=== PATIENT | male | born 1985 | race Two or more races ===

== ENCOUNTER 2020-04-21 11:23 | Emergency (ER) | payer OTHER ==
[~2020-04-21] VITALS: Ht 167.6 cm; Wt 63.5 kg
[2020-04-21] MEDS ORDERED: IV NORMAL SALINE 1,000ML 1,000 ML IV ONE (11:45)
[2020-04-21] MEDS ORDERED: CLINDAMYCIN 600MG PREMIX 50 ML IV ONE (11:45)
--- NOTE | 2020-04-21 12:45 | RAD ---
EXAMINATION: EXT NON VASC LEFT 04/21/2020 11:41 AM INDICATION: Painful red area left groin TECHNIQUE: Cooper scale and color Doppler ultrasound images of the left groin were obtained. COMPARISON: None. FINDINGS: There is diffuse subcutaneous edema in the left groin. No discrete mass or fluid collection. No inguinal hernia or lymphadenopathy identified. IMPRESSION: Subcutaneous edema in the left groin. No discrete mass, fluid collection, hernia, or lymphadenopathy visualized. Electronically signed by: Breanna De Oliveira MD (04/21/2020 12:42 PM) [id number]
[2020-04-21 12:49] LABS: BASO % 0 % (0-3); EOS % 0 % (0-3); HEMATOCRIT 42.4 % (39.0-53.0); HEMOGLOBIN 13.8 g/dL (13.0-17.5); LYMPH # 0.6 x10^3/uL (1.0-4.8); LYMPH % 5 % (24-48); MEAN CORPUSCULAR HEMOGLOBIN 30 pg (25-35); MEAN CORPUSCULAR HGB CONC 32 g/dL (31-37); MEAN CORPUSCULAR VOLUME 92 fL (79-100); MONO # 0.7 x10^3/uL (0.0-1.1); MONO % 5 % (0-9); NEUT # 12.8 x10^3uL (1.8-7.7); NEUT % 90 % (31-73); PLATELET COUNT 187 x10^3/uL (140-400); RED BLOOD COUNT 4.59 x10^6/uL (4.30-5.70); RED CELL DISTRIBUTION WIDTH 14.4 % (11.5-14.5); WHITE BLOOD COUNT 14.2 x10^3/uL (4.0-11.0)
[2020-04-21 12:57] LABS: CALCIUM 8.6 mg/dL (8.5-10.1); CREATININE 1.2 mg/dL (0.7-1.3); GFR 69.3; POTASSIUM 3.4 mmol/L (3.5-5.1)
[2020-04-21 13:03] LABS: ALBUMIN 3.2 g/dL (3.4-5.0); ALBUMIN/GLOBULIN RATIO 0.8 (1.0-1.7); TOTAL BILIRUBIN 0.8 mg/dL (0.2-1.0); TOTAL PROTEIN 7.1 g/dL (6.4-8.2)
[2020-04-21 13:10] LABS: BACTERIA,URINE 0 /HPF (0-FEW); BILIRUBIN,URINE NEG (NEG); CLARITY,URINE CLEAR; COLOR,URINE YELLOW; GLUCOSE,URINE 100 mg/dL (NEG); NITRITE,URINE NEG (NEG); RBC,URINE OCC /HPF (0-2); SQUAMOUS EPITHELIAL CELL,UR FEW /LPF; UROBILINOGEN,URINE >=8.0 mg/dL (0.2 mg/dL); WBC,URINE OCC /HPF (0-4)
[2020-04-21 13:41] VITALS: BP 129/66
--- NOTE | 2020-04-21 13:47 | PHYS DOC ---
Past History Past Medical History: No Pertinent History Past Surgical History Vasectomy, ear surgery, dental surgery Smoking: Non-smoker Alcohol Use: Rarely General Adult EDM: Chief Complaint: GROIN PAIN HPI: HPI: Patient is a 34 year old male who presents for evaluation of left groin area pain and swelling. There is warmth and redness to the site. Symptoms have been progressing for about 2 days. Patient was seen earlier today at an urgent care clinic was sent to the hospital for evaluation. Patient states that the area feels "warm and hot". There is no reported urinary complaints. Patient has no fevers and chills. Patient had recently been shaving his groin area. There is no discernible abscess seen and there is no drainage. Patient has no testicular pain or swelling Review of Systems: Review of Systems: Constitutional: Denies fever or chills Eyes: Denies change in visual acuity HENT: Denies nasal congestion or sore throat Respiratory: Denies cough or shortness of breath Cardiovascular: Denies chest pain or edema GI: Denies abdominal pain, nausea, vomiting, bloody stools or diarrhea : Denies dysuria Musculoskeletal: Denies back pain or joint pain Integument: Denies rash, swollen red area left groin Neurologic: Denies headache, focal weakness or sensory changes Endocrine: Denies polyuria or polydipsia Lymphatic: Denies swollen glands Psychiatric: Denies depression or anxiety Current Medications: Current Meds: Current Medications Medications (Trade) Dose Ordered Sig/[facility] Start Time Stop Time Status Last Admin Dose Admin Clindamycin Phosphate 50 ml @ 100 mls/hr 1X ONCE 04/21/20 11:45 04/21/20 12:14 DC 04/21/20 11:45 100 MLS/HR Sodium Chloride 1,000 ml @ 1,000 mls/hr 1X ONCE 04/21/20 11:45 04/21/20 12:44 DC 04/21/20 12:09 1,000 MLS/HR Allergies: Allergies: Allergies Coded Allergies Type Severity Reaction Last Updated Verified No Known Drug Allergies 04/21/20 No Physical Exam: PE: Constitutional: Well developed, well nourished, mild acute distress, non-toxic appearance. [] HENT: Normocephalic, atraumatic, bilateral external ears normal, oropharynx moist, no oral exudates, nose normal. [] Eyes: PERRL, EOMI, conjunctiva normal, no discharge. [] Neck: Normal range of motion, no tenderness, supple. [] Cardiovascular:Heart rate regular rhythm, no murmur [] Lungs & Thorax: Bilateral breath sounds clear to auscultation [] Abdomen: Bowel sounds normal, soft, no tenderness, no masses, no pulsatile masses. [] Skin: Warm, dry, no erythema, no rash. [] Back: No tenderness. [] Extremities: No tenderness, no cyanosis, ROM intact, no edema. [] Neurologic: Alert and oriented X 3, normal motor function, normal sensory function, no focal deficits noted. [] Psychologic: Affect normal, judgement normal, mood normal. : Interior Design Assistant present, left groin area has a red and swollen area measure about 3 cm in diameter. There is surrounding warmth and redness that goes up the crease of the left groin area. No discernible abscess seen or palpated, there is no drainage. He has recently shaved his groin area, it has the appearance of localized cellulitis, site is not reducible [] Current Patient Data: Labs: Laboratory Tests Test 04/21/20 12:09 04/21/20 12:23 Urine Collection Type Unknown Urine Color Yellow Urine Clarity Clear Urine pH 8.0 Urine Specific [place] 1.020 Urine Protein 30 mg/dl (NEG-TRACE) Urine Glucose (UA) 100 mg/dL (NEG) Urine Ketones (Stick) 80 mg/dL (NEG) Urine Blood Neg (NEG) Urine Nitrite Neg (NEG) Urine Bilirubin Neg (NEG) Urine Urobilinogen Dipstick >=8.0 mg/dL (0.2 mg/dL) Urine Leukocyte Esterase Neg (NEG) Urine RBC Occ /HPF (0-2) Urine WBC Occ /HPF (0-4) Urine Squamous Epithelial Cells Few /LPF Urine Bacteria 0 /HPF (0-FEW) Urine Mucus Slight /LPF White Blood Count 14.2 x10^3/uL (4.0-11.0) H Red Blood Count 4.59 x10^6/uL (4.30-5.70) Hemoglobin 13.8 g/dL (13.0-17.5) Hematocrit 42.4 % (39.0-53.0) Mean Corpuscular Volume 92 fL (79-100) Mean Corpuscular Hemoglobin 30 pg (25-35) Mean Corpuscular Hemoglobin Concent 32 g/dL (31-37) Red Cell Distribution Width 14.4 % (11.5-14.5) Platelet Count 187 x10^3/uL (140-400) Neutrophils (%) (Auto) 90 % (31-73) H Lymphocytes (%) (Auto) 5 % (24-48) L Monocytes (%) (Auto) 5 % (0-9) Eosinophils (%) (Auto) 0 % (0-3) Basophils (%) (Auto) 0 % (0-3) Neutrophils # (Auto) 12.8 x10^3uL (1.8-7.7) H Lymphocytes # (Auto) 0.6 x10^3/uL (1.0-4.8) L Monocytes # (Auto) 0.7 x10^3/uL (0.0-1.1) Eosinophils # (Auto) 0.0 x10^3/uL (0.0-0.7) Basophils # (Auto) 0.0 x10^3/uL (0.0-0.2) Sodium Level 138 mmol/L (136-145) Potassium Level 3.4 mmol/L (3.5-5.1) L Chloride Level 100 mmol/L (98-107) Carbon Dioxide Level 27 mmol/L (21-32) Anion Gap 11 (6-14) Blood Urea Nitrogen 7 mg/dL (8-26) L Creatinine 1.2 mg/dL (0.7-1.3) Estimated GFR (Cockcroft-Gault) 69.3 BUN/Creatinine Ratio 6 (6-20) Glucose Level 96 mg/dL (70-99) Lactic Acid Level 1.8 mmol/L (0.4-2.0) Calcium Level 8.6 mg/dL (8.5-10.1) Total Bilirubin 0.8 mg/dL (0.2-1.0) Aspartate Amino Transferase (AST) 28 U/L (15-37) Alanine Aminotransferase (ALT) 59 U/L (16-63) Alkaline Phosphatase 77 U/L (46-116) Total Protein 7.1 g/dL (6.4-8.2) Albumin 3.2 g/dL (3.4-5.0) L Albumin/Globulin Ratio 0.8 (1.0-1.7) L Vital Signs: Vital Signs Date Time Temp Pulse Resp B/P (MAP) Pulse Ox O2 Delivery O2 Flow Rate FiO2 04/21/20 13:41 89 18 129/66 (87) 97 Room Air 04/21/20 11:32 99.3 EKG: EKG: [] Radiology/Procedures: Radiology/Procedures: [][address] [address] IMAGING REPORT Signed PATIENT: DAGO CAMACHO MACCOUNT: [id number] : 1985 LOCATION: ER AGE: 34 SEX: M EXAM STATUS: REG ER ORD. PHYSICIAN: ZAC DRUMMOND DO REASON: painful red area left groin area PROCEDURE: EXT NON VASC LEFT EXAMINATION: EXT NON VASC LEFT 04/21/2020 11:41 AM INDICATION: Painful red area left groin TECHNIQUE: Cooper scale and color Doppler ultrasound images of the left groin were obtained. COMPARISON: None. FINDINGS: There is diffuse subcutaneous edema in the left groin. No discrete mass or fluid collection. No inguinal hernia or lymphadenopathy identified. IMPRESSION: Subcutaneous edema in the left groin. No discrete mass, fluid collection, hernia, or lymphadenopathy visualized. Electronically signed by: Breanna De Oliveira MD (04/21/2020 12:42 PM) [id number] DICTATED AND SIGNED BY: BREANNA DE OLIVEIRA MD DATE: 04/21/20 1241 CC: CORTNEY HERNANDEZ; ZAC DRUMMOND DO ~ Heart Score: Risk Factors: Risk Factors: DM, Current or recent (<one month) smoker, HTN, HLP, family history of CAD, obesity. Risk Scores: Score 0 - 3: 2.5% MACE over next 6 weeks - Discharge Home Score 4 - 6: 20.3% MACE over next 6 weeks - Admit for Clinical Observation Score 7 - 10: 72.7% MACE over next 6 weeks - Early Invasive Strategies Course & Med Decision Making: Course & Med Decision Making Pertinent Labs and Imaging studies reviewed. (See chart for details) [] Dragon Disclaimer: Dragon Disclaimer: This electronic medical record was generated, in whole or in part, using a voice recognition dictation system. 1347 stable, patient reexamined at this time. Sonogram did not show evidence of a localized abscess there was no incision and drainage required. Patient has no involvement of his testicles and there is no evidence of testicular torsion. Furthermore there is no evidence of a hernia. This appears to be a localized cellulitis. Patient given dose of IV clindamycin. 14,000 white blood cell count noted but he is not currently running a fever. Prescription for clindamycin and doxycycline given. Close follow-up recommended Departure Departure: Impression: Primary Impression: Cellulitis of groin, left Disposition: DC HOME SELF CARE/HOMELESS Condition: STABLE Referrals: CORTNEY HERNANDEZ (PCP) Patient Instructions: Cellulitis, [id number] Additional Instructions: Use warm compresses to site, take medication as directed, take Tylenol or ibuprofen for pain or fever. Have your doctor recheck this in the next couple days, return if symptoms persist or worsen Scripts Doxycycline Hyclate (DOXYCYCLINE HYCLATE) 100 Mg Capsule 1 CAP PO BID for cellulitis, #14 CAP Prov: ZAC DRUMMOND DO 04/21/20 Clindamycin Hcl (CLINDAMYCIN HCL) 150 Mg Capsule 1 CAP PO QID for cellulitis, #28 CAP Prov: ZAC DRUMMOND DO 04/21/20 ZAC DRUMMOND DO Apr 21, 2020 13:47
[2020-04-21] MEDS ORDERED: DOXY100C2 PO (13:56)
[2020-04-21] MEDS ORDERED: CLIN150C14 PO (13:56)
== END 2020-04-21 14:22 | disposition home or self-care (01) ==
LOC: ER 11:23
DX: L03.314 Cellulitis of groin (principal); R10.32 Left lower quadrant pain; R60.0 Localized edema; Z90.89 Acquired absence of other organs; Z98.890 Other specified postprocedural states
CPT/HCPCS: 36415; 76881; 80053; 81001; 83605; 85025; 87040; 96365; 99284; J3490; J7030

== ENCOUNTER 2020-06-08 11:40 | Emergency (ER) | payer OTHER ==
[~2020-06-08] VITALS: Ht 167.6 cm; Wt 64.9 kg
[~2020-06-08 11:40] MED LIST: CLIN150C14 PO; DOXY100C2 PO
[2020-06-08 12:00] VITALS: BP 130/88
--- NOTE | 2020-06-08 12:32 | PHYS DOC ---
Past History Past Medical History: No Pertinent History Smoking: Non-smoker Alcohol Use: Rarely General Adult EDM: Chief Complaint: PENIS PROBLEM HPI: HPI: 34 yo M who denies any PMH presents to the ed with c/o painful lesion to his penis that started after using an "autoblow 2.0," 2 days ago, described as a sex toy that mimics mastubation, requires penis insertion. Pt reports it was painful to remove the autoblow 2 days ago and after he got if removed, saw a bump on the side of his penis shaft with some skin missing. Lesion did not bleed. Pt reports he was tested for STDs 3 months ago and was negative. Is but is in an open sexual relationship and states he uses condoms every time. Tetanus is up-to-date. Has been applying Neosporin and bandages to the wound. No associated urethral discharge, dysuria, hematuria, scrotal/penile shaft swelling, increased urinary frequency or urgency or spreading genital rash. No h/o mrsa. Review of Systems: Review of Systems: Constitutional: Denies fever or chills Eyes: Denies change in visual acuity HENT: Denies nasal congestion or sore throat Respiratory: Denies cough or shortness of breath Cardiovascular: Denies chest pain or edema GI: Denies abdominal pain, nausea, vomiting, bloody stools or diarrhea : Denies dysuria or hematuria Musculoskeletal: Denies back pain or joint pain Integument: Denies diaphoresis or scrotal edema Neurologic: Denies headache, focal weakness or sensory changes Endocrine: Denies polyuria or polydipsia Lymphatic: Denies swollen glands Psychiatric: Denies depression or anxiety Current Medications: Current Meds: Current Medications Medications (Trade) Dose Ordered Sig/[facility] Start Time Stop Time Status Last Admin Dose Admin Azithromycin (Zithromax) 1,000 mg 1X ONCE 06/08/20 12:15 06/08/20 12:21 DC Ceftriaxone Sodium (Rocephin Im) 250 mg 1X ONCE 06/08/20 12:15 06/08/20 12:21 DC Allergies: Allergies: Allergies Coded Allergies Type Severity Reaction Last Updated Verified No Known Drug Allergies 04/21/20 No Physical Exam: PE: Constitutional: Well developed, well nourished, no acute distress, non-toxic appearance. HENT: Normocephalic, atraumatic, Eyes: EOMI, conjunctiva normal, no discharge. Neck: Normal range of motion, supple, Cardiovascular: S1/2 present, regular rhythm Lungs & Thorax: Speaking in full sentences, bilateral equal chest rise, no tachypnea or increased work of breathing Abdomen: soft, no tenderness, Skin: Warm, dry, no erythema, no rash. [] : chaperoned by RN, uncircumcised (no paraphimosis/phimosis), 1.5x1.x5 raised borders/circular lesion with yellow overlying ttp granulation tissue (no epidermis or dermis), no drainage or bleeding, no penile swelling or rash, no scrotal pain/rash Extremities: No tenderness, no cyanosis, no edema Neurologic: Alert and oriented X 3, normal motor function, normal sensory function, no focal deficits noted. [] Psychologic: Affect normal, judgement normal, mood normal. [] EKG: EKG: [] Radiology/Procedures: Radiology/Procedures: [] Heart Score: Risk Factors: Risk Factors: DM, Current or recent (<one month) smoker, HTN, HLP, family history of CAD, obesity. Risk Scores: Score 0 - 3: 2.5% MACE over next 6 weeks - Discharge Home Score 4 - 6: 20.3% MACE over next 6 weeks - Admit for Clinical Observation Score 7 - 10: 72.7% MACE over next 6 weeks - Early Invasive Strategies Course & Med Decision Making: Course & Med Decision Making Pertinent Labs and Imaging studies reviewed. (See chart for details) I do suspect friction trauma to the penile shaft with early granulation tissue formation. But given patient's sex history and known history of herpes, patient was empirically treated for chlamydia and gonorrhea in the ED. Wet prep did not show any trichomonas. Will also be given doxycycline 100 mg twice daily for 14 days. This will cover patient for chlamydia/lymphogranuloma venereum, chancro id, granuloma inguinale, and primary syphilis. Strict ED return precautions were given for spreading rash, worsening swelling or pain. Encouraged urgent outpatient follow-up with PMD and urology for outpt followup. Life-threatening processes were considered but are low suspicion at this time, given history and physical exam. Pt was educated on all prescription medications and adverse effects. All patient's questions were answered and pt was stable at time of discharge. Life/limb-threatening differential includes but is not limited to, infection (sti/pid, cystitis, pyelonephritis, Agustina's gangrene or necrotizing fasciitis, abscess) ureterolithiasis, thrombophlebitis, organ prolapse, abdominal aortic aneurysm, mesenteric ischemia, neoplasm, bowel obstruction or surgical abdomen. I spoken with the patient and her caregivers. I explained the patient's condition, diagnoses and treatment plan based on the information available to me at this time. I have answered the patient and her caregiver's questions and addressed any concerns. The patient and her caregivers have a good understanding of patient's diagnosis, condition and treatment plan as can be expected at this point. Vital signs have been stable. Patient's condition is stable and appropriate for discharge from the emergency department. Patient will pursue further outpatient evaluation with primary care physician or other designated or consulting physician as outlined in the discharge instructions. The patient and/or caregivers are agreeable to this plan of care and follow-up instructions have been explained in detail. The patient and/or caregivers have received these instructions in written form and have expressed an understanding of the discharge instructions. The patient and/or caregivers are aware that any significant change of condition or worsening of symptoms should prompt immediate return to this or the closest emergency department or call to [facility] Disclaimer: Noman Disclaimer: This electronic medical record was generated, in whole or in part, using a voice recognition dictation system. Departure Departure: Impression: Primary Impression: Uncomplicated open wound of penis Disposition: 01 DC HOME SELF CARE/HOMELESS Condition: STABLE Referrals: CORTNEY HERNANDEZ (PCP) For blood-borne sexually-related illnesses (hepatitis, syphilis, HIV) Patient Instructions: Sexually Transmitted Disease, Wound Care, [id number] Additional Instructions: FOLLOW UP WITH UROLOGY: for wound re-evaluation in 1 week [facility] urologists Medical [place] [address] [place] [address] appointments: [phone] EMERGENCY DEPARTMENT GENERAL DISCHARGE INSTRUCTIONS Thank you for coming to [facility] (ED) today and trusting us with you care. We trust that you had a positivie experience in our Emergency Department. If you wish to speak to the department management, you may call the director at [phone]. YOUR FOLLOW UP INSTRUCTIONS ARE FOLLOWS: 1. Do you have a private Doctor? If you do not have a private doctor, please ask for a resource list of physicians or clinics that may be able to assist you with follow up care. 2. The Emergency Physician has interpreted your x-rays. The X-Ray specialist will also review them. If there is a change in the findings, you will be notified in 48 hours when at all possible. 3. A lab test or culture has been done, your results will be reviewed and you will be notified if you need a change in treatment. ADDITIONAL INSTRUCTIONS AND INFORMATION: 1. Your care today has been supervised by a physician who is specially trained in emergency care. Many problems require more than one evaluation for a complete diagnosis and treatment. We recommend that you schedule your follow up appointment as recommended to ensure complete treatment of you illness or injury. If you are unable to obtain follow up care and continue to have a problem, or if your condition worsens, we recommend that you return to the ED. 2. We are not able to safely determine your condition over the phone nor are we able to give sound medical advice over the phone. For these safety reasons, if you call for medical advice we will ask you to come to the ED for further evaluation. 3. If you have any questions regarding these discharge instructions please call the ED at [phone]. SAFETY INFORMATION: In the interest of safety, wellness, and injury prevention; we encourage you to wear your sealbelt, if you smoke; quite smoking, and we encourage family to use a protective helmet for bicycling and other sporting events that present an increased risk for head injury. IF YOUR SYMPTOMS WORSEN OR NEW SYMPTOMS DEVELOP, OR YOU HAVE CONCERNS ABOUT YOUR CONDITION; OR IF YOUR CONDITION WORSENS WHILE YOU ARE WAITING FOR YOUR FOLLOW UP APPOINTMENT; EITHER CONTACT YOUR PRIMARY CARE DOCTOR, THE PHYSICIAN WHOSE NAME AND NUMBER YOU WERE GIVEN, OR RETURN TO THE ED IMMEDIATELY. Scripts Doxycycline Hyclate (DOXYCYCLINE HYCLATE) 100 Mg Capsule 1 CAP PO BID for rash for 14 Days, #28 CAP Prov: CHINMAY CAM DO 06/08/20 CHINMAY CAM DO Jun 08, 2020 12:31
[2020-06-08] MEDS ORDERED: LIDOCAINE 1% Multi-Dose 20 ML VIAL. ONE (12:39)
[2020-06-08] MEDS: cefTRIAXone IM 250 MG VIAL IM ONE (12:44)
[2020-06-08] MEDS: AZITHROMYCIN 250 MG TABLET. PO ONE (12:44)
[2020-06-08] MEDS: NEOMY/BACITR/POLYMYXIN OINT PACKET. TP ONE (12:45)
[2020-06-08] MEDS ORDERED: DOXY100C2 PO (13:29)
== END 2020-06-08 13:40 | disposition home or self-care (01) ==
LOC: ER 11:40
DX: S31.20XA Unspecified open wound of penis, initial encounter (principal); X58.XXXA Exposure to other specified factors, initial encounter; Y93.89 Activity, other specified; Y92.89 Other specified places as the place of occurrence of the external cause; Y99.8 Other external cause status
CPT/HCPCS: 36415; 87491; 87591; 96372; 99283; J0456; J0696; Q0111